=== PATIENT | male | born 1980 | race African-American/Black ===

== ENCOUNTER 2016-11-16 14:18 | Inpatient (IN) ==
[2016-11-16] MEDS ORDERED: MORPHINE 2 MG/1 ML SYRINGE IV STA ×2 (15:32→15:33)
[2016-11-16] MEDS ORDERED: LIDOCAINE 1%/EPI INJ 20 ML VIAL NERVEBLOCK STA (15:33)
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
[2016-11-16 16:05] LABS: Basophils % 0.1 % (0.0-0.8); Hematocrit 46.1 VOL% (42.0-52.0); Hemoglobin 15.1 GM/DL (14.0-18.0); Immature Granulocytes % 0.3 %; Immature Granulocytes Absolute 0.03 #; Lymphocytes % 9.3 % (21.2-54.2); Mean Corpuscular HGB Conc 32.8 GM/DL (32-36); Mean Corpuscular Hemoglobin 31 PG (27-34); Mean Corpuscular Volume 94.1 FL (87-102); Mean Platelet Volume 8.9 FL (9.6-12.0); Monocytes # 0.5 10*3/uL (0.11-0.8); Neutrophils % 85.3 % (38.7-73.9); Platelet Count 185 T/CUMM (130-400); Red Cell Distribution Width 15.2 % (9.3-17.3); White Blood Count 10.6 T/CUMM (4-12)
[2016-11-16 16:14] LABS: PT Patient Result 10.8 SECS; Partial Thromboplastin Time 24.3 SECS (0-40)
[2016-11-16 16:40] LABS: Albumin 3.8 G/DL (3.4-5.0); Bilirubin,Total 0.4 MG/DL (0.2-1.0); Calcium 9.1 MG/DL (8.5-10.1); Osmolality,Calculated 277.4 MOS/KG (273-304); Potassium 4.4 MMOL/L (3.5-5.1); Total Protein 7.8 G/DL (6.4-8.3)
[2016-11-16] MEDS ORDERED: ONDANSETRON 4 MG/2 ML VIAL IV STA (16:45)
[2016-11-16] MEDS ORDERED: MORPHINE 2 MG/1 ML SYRINGE ONE (16:45)
[2016-11-16] MEDS ORDERED: ONDANSETRON 4 MG/2 ML VIAL ONE (16:45)
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
[2016-11-16] MEDS ORDERED: METHOCARBAMOL 1,000 MG/10 ML VIAL IV STA (17:15)
[2016-11-16] MEDS ORDERED: MIDAZOLAM 2 MG/2 ML VIAL ONE (17:45)
[2016-11-16] MEDS ORDERED: MIDAZOLAM 2 MG/2 ML VIAL IV STA (17:45)
[2016-11-16] MEDS ORDERED: METHOCARBAMOL 1,000 MG/10 ML VIAL ONE (18:35)
--- NOTE | 2016-11-16 18:42 | XRay Report ---
History is pneumothorax chest tube placement Chest one view 611 spelled 2017 at 6:00 PM Comparison with earlier the same day Mediastinal contour is unchanged Chest tube has been placed on the right. There is suspected minimal residual anterior pneumothorax. 17 cm in the right chest and neck remains. Right basilar contusion again seen are grafts minimal atelectasis in the left base present Impression: Interval right chest tube placement with suspected minimal residual anterior pneumothorax PROCEDURE INTERPRETED AT [facility] DEPARTMENT OF RADIOLOGY Final Report Signed by: Dr. Sherry Ayala
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
[2016-11-16] MEDS ORDERED: ONDANSETRON 4 MG/2 ML VIAL IV PRN (21:18)
[2016-11-16] MEDS ORDERED: PROMETHAZINE 25 MG/1 ML VIAL IM PRN (21:18)
[2016-11-16] MEDS ORDERED: HYDROmorphone 2 MG/1 ML VIAL IV PRN (21:18)
[2016-11-16] MEDS: LACTATED RINGERS 1,000 ML IV SCH (21:25)
[2016-11-16] MEDS: KETOROLAC 30 MG/1 ML VIAL IV SCH (21:48)
[2016-11-17] MEDS: KETOROLAC 30 MG/1 ML VIAL IV SCH ×4 (04:16→22:54)
[2016-11-17] MEDS: LACTATED RINGERS 1,000 ML IV SCH ×3 (05:22→23:58)
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
--- NOTE | 2016-11-17 08:59 | XRay Report ---
XR chest 2V Date: 11/17/2016 4:00 AM History: Right pneumothorax Comparison: 11/16/2016 Technique: PA and lateral chest Findings: The heart is top normal in size. No significant change in position of the right chest tube with residual subcutaneous emphysema and small right pneumothorax. Persistent diffuse parenchymal findings in the lower lung zones with small right pleural effusion. Known CT proven right rib fractures. Impression: Smaller right pneumothorax with right chest tube which remains in satisfactory position. Residual subcutaneous emphysema with atelectasis/contusion and right rib fractures. PROCEDURE INTERPRETED AT [facility] DEPARTMENT OF RADIOLOGY Final Report Signed by: Dr. Nirmala Silva
[2016-11-17] MEDS: ENOXAPARIN 40 MG/0.4 ML SYRINGE SUBCUT SCH (13:31)
[2016-11-18] MEDS: KETOROLAC 30 MG/1 ML VIAL IV SCH ×4 (03:14→21:30)
[2016-11-18] MEDS: LACTATED RINGERS 1,000 ML IV SCH ×2 (05:35→10:36)
--- NOTE | 2016-11-18 06:43 | XRay Report ---
Portable chest Date: 11/18/2016 Clinical history: Right pneumothorax Comparison: 11/17/2016 Technique: Portable AP sitting chest Findings: The heart is top normal in size with stable right chest tube. Smaller right pneumothorax with residual atelectasis at the lung bases and small right pleural effusion. Residual subcutaneous emphysema with no right rib fractures. Impression: Smaller right pneumothorax with stable right chest tube. Residual atelectasis/contusion at the lung bases, small pleural effusions, subcutaneous emphysema, and right rib fractures. PROCEDURE INTERPRETED AT [facility] DEPARTMENT OF RADIOLOGY Final Report Signed by: Dr. Nirmala Silva
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
[2016-11-18] MEDS: ENOXAPARIN 40 MG/0.4 ML SYRINGE SUBCUT SCH (12:55)
[2016-11-19] MEDS: KETOROLAC 30 MG/1 ML VIAL IV SCH ×3 (02:59→17:03)
--- NOTE | 2016-11-19 07:34 | XRay Report ---
XR chest 2V Date: 11/19/2016 4:00 AM History: Right pneumothorax Comparison: 11/18/2016 Technique: PA and lateral chest Findings: The heart is borderline in size with stable right chest tube. Residual subcutaneous emphysema with residual small right pneumothorax. Persistent diffuse parenchymal findings at the lung bases with small right pleural effusion. Stable mediastinum and osseous structures with known right rib fractures. Impression: No significant change in the appearance of the chest. Stable right chest tube with residual probable small right pneumothorax. Persistent dense pleural-parenchymal findings at the right lung base with subcutaneous emphysema and right rib fractures. PROCEDURE INTERPRETED AT [facility] DEPARTMENT OF RADIOLOGY Final Report Signed by: Dr. Nirmala Silva
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
[2016-11-19] MEDS: ENOXAPARIN 40 MG/0.4 ML SYRINGE SUBCUT SCH (12:37)
--- NOTE | 2016-11-19 15:36 | XRay Report ---
Exam: XR chest 1V Date: 11/19/2016 3:00 PM Indication: Post chest tube removal Comparison: 11/19/2016 Technical: PA chest Findings: Subcutaneous air is present over the right chest and neck. The right-sided thoracotomy tube has been removed. No obvious pneumothorax present. Some underlying effusion and atelectatic change in the right base. The exam is mild cardiac enlargement. The bony structures are otherwise intact. Impression: 1. Removal of the right-sided thoracotomy tube 2. No pneumothorax 3. Persistent subcutaneous air slightly decreased when compared to previous exam 4. Low volume right effusion and atelectatic change PROCEDURE INTERPRETED AT [facility] DEPARTMENT OF RADIOLOGY Final Report Signed by: Dr. Jeffrey Verde
[2016-11-19 17:07] VITALS: BP 122/86
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
== END 2016-11-19 20:25 | disposition home or self-care (01) | DRG 200 ==
LOC: EDUNIT# → EDBD → N.ED 14:18 → N.EDINP 18:55 → N.3E 19:52
PROVIDERS: ADMIT Surgery; ATTEND Surgery